=== PATIENT | male | born 1965 | race Caucasian/White ===

== ENCOUNTER → 2021-06-22 | Outpatient (CLI) | payer BC | LOC: CARD 13:00 | PROVIDERS: ATTEND Internal Medicine Cardiovascular Disease | DX: I11.9 Hypertensive heart disease without heart failure (principal); I25.10 Atherosclerotic heart disease of native coronary artery without angina pectoris | CPT/HCPCS: 93306 ==

== ENCOUNTER → 2021-07-07 | Outpatient (CLI) | payer BC ==
[2021-07-07 13:32] VITALS: BP 135/79
--- NOTE | 2021-07-07 16:13 | Cardiology Stress Test Report ---
Stress Test Report Date of Procedure/Referring: Date of Procedure: July 07, 2021 PCP Marck Silvestre MD Admitting Physician Admitting Physician: Attending Physician: Delta Cohen MD Indications: HTN Baseline Heart Rate: 56 Baseline Blood Pressure: Blood Pressure Systolic: 135 Blood Pressure Diastolic: 79 Vital Signs Date Time Temp Pulse Resp B/P (MAP) Pulse Ox O2 Delivery O2 Flow Rate FiO2 07/07/21 13:32 56 135/79 (97) 98 Room Air Baseline Vital Signs Vital Signs Date Time Temp Pulse Resp B/P (MAP) Pulse Ox O2 Delivery O2 Flow Rate FiO2 07/07/21 13:32 56 135/79 (97) 98 Room Air Baseline EKG: Baseline EKG: RBBB Summary: After explaining the procedure and details to the patient, he signed the consent and was brought to the stress nuclear laboratory. Patient exercised on standard David protocol, EKG, heart rate and blood pressure were monitored continuously, resting and stress doses of radio tracer were injected, imaging was acquired and reviewed in the short axis, horizontal long axis and vertical long axis views Patient was able to exercise for a total of 9 minutes on David protocol, METs 10.3 Maximum heart rate 146 Maximum blood pressure 219/96 Stress EKG, Minimal nondiagnostic changes Recovery EKG, Return to baseline TID: 0.91 SSS: 4 SDS: 4 EF: 62 Conclusion: 1. Excellent exercise tolerance for a total of 9 minutes on standard David protocol 10.3 METS achieving 90% of maximal expected heart rate 2. Appropriate heart rate response to exercise with severe hypertensive response to exercise with peak blood pressure 219/96 return to baseline during recovery 3. Baseline right bundle branch block with nondiagnostic EKG changes with exercise return to baseline during recovery 4. Typical male pattern with no significant ischemia or infarction on SPECT images 5. Normal left ventricular size, EF 62% DELTA COHEN MD July 07, 2021 16:13
== END ==
LOC: CARD 12:45
PROVIDERS: ATTEND Internal Medicine Cardiovascular Disease
DX: I10 Essential (primary) hypertension (principal); I25.10 Atherosclerotic heart disease of native coronary artery without angina pectoris
CPT/HCPCS: 78452; 93017; A9502